=== PATIENT | female | born 1940 | race Caucasian/White ===

== ENCOUNTER 2020-05-07 09:38 | Observation (INO) | payer MEDICARE, SELFPAY ==
[2020-05-07] VITALS (9 sets, daily range): BP systolic 107–188; BP diastolic 63–86; PULSE 51–107; RESP 17–20; TEMP 36.5–36.8; O2SAT 95–97; BMI 27.4
--- NOTE | 2020-05-07 10:09 | CT_ITS ---
WS: [id number] CT HEAD TECHNIQUE: Noncontrast CT of the head obtained from the skullbase to the vertex. CLINICAL INFORMATION: AMS/weakness COMPARISON: CT head 5 22,016 DLP: 1776.[address] scans at [facility] use at least one of these dose optimization techniques: automat ed exposure control; mA and/or kV adjustment per patient size (includes targeted exams where dose is matched to clinical indication); or iterative reconstruction. FINDINGS: No evidence of intracranial hemorrhage or mass effect. Ventricular system and basal cisterns are mathis nt. Moderate small vessel changes with moderate parenchymal volume loss. No extra-axial fluid collect ions. No evidence of mass or mass effect. Normal linder-white differentiation. Fluid within the sphenoid sinus. Mastoid air cells well aerated.Normal visualized soft tissues. CT/CT head wo con* [id number] IMPRESSION: 1. No evidence of intracranial hemorrhage or mass effect. 2. Moderate small vessel changes. Moderate parenchymal volume loss. This is pr ogressed since 2016. 3. Sphenoid sinusitis. 4. No acute intracranial findings.
--- NOTE | 2020-05-07 10:09 | XR_ITS ---
WS: [id number] Portable AP upright chest, 05/07/2020 Clinical Data: AMS Comparison: None. Findings: No nodules, masses or effusions are seen. The heart is normal. The pulmonary vascularity is not increased. No pneumonia or pneumothorax is seen. The aortic arch and descending aorta show tortu osity. There are clips in the right upper quadrant from a cholecystectomy. XR/XR chest 1V portable [id number] Impression: Atherosclerosis.
--- NOTE | 2020-05-07 10:09 | ECG_ITS ---
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 Measurements Intervals [place] Rate: 51 P: 250 DE: 126 QRS: 12 QRSD: 88 T: 35 QT: 444 QTc: 412 Interpretive Statements SINUS BRADYCARDIA WITH FIRST DEGREE AV BLOCK Compared to ECG 07/20/2015 19:48:29 Sinus rhythm no longer present First degree AV block no longer present Electronically Signed On 05-07-2020 18:52:08 ELECTRO MECHANICAL SOLAR TECHNICIAN by Magy Aldana M.D. [email or web address]/store/[id number] f
--- NOTE | 2020-05-07 10:10 | W.ED.NEUROSD ---
HPI - Neuro Symptoms/Deficit General: Chief Complaint: Weakness Stated Complaint: GENERAL WEAKNESS Time Seen by Provider: 05/07/20 09:49 Source: family (daughter) Limitations: altered mental status (pt with baseline dementia/Alzheimer's) History of Present Illness: HPI Narrative: Patient is an 80-year-old female with a history of Alzheimer's dementia here with her daughter for complaints of altered mental status. Patient received second COVID dose on Tuesday. Daughter tells me yesterday morning when patient woke up she seemed very weak and had trouble getting out of bed. Daughter states she was very disoriented. She was able to stand up but seemed to shuffle her feet with ambulation. Daughter states throughout the day patient continued to act abnormally. She often would slouch over to the left. She picked/poked at her food and didn't eat much. Daughter states she often said things that didn't make sense. They did not noticed any slurred speech or facial drooping. Daughter states symptoms did not improve into today-they were told that she might have a UTI so they brought patient to the ED. Onset (ago): day(s) (yesterday) Timing confirmed by: family member Treatments Prior to Arrival: none Review of Systems General: Reports: ROS unobtainable due to mental status Physical Exam Const: COMMON NORMALS: no acute distress, average body habitus, healthy appearing, alert and well nourished GENERAL APPEARANCE: cooperative ORIENTATION/CONSCIOUSNESS: Yes awake OTHER: patient can tell me her first name; she doesn't know where she is or her -daughter states she normally wouldn't know these; she tells me she recognizes the individual in the room and knows her name but doesn't know how they are related (daughter); patient does not follow commands very well making NIHSS testing difficult; she can uncross her legs when asked; she won't raise legs off the table when asked; she won't raise arms up when asked; she will squeeze my fingers and strength is equal bilaterally; she will smile, puff her cheeks, raise eyebrows and squint eyes and I do not visualize any facial asymmetry; she did not stick out her tongue and move side to side; she won't shrug shoulders; she won't repeat sentences; she often laughs inappropriately when I ask her questions ANN: COMMON NORMALS: normocephalic and atraumatic HEAD & SCALP: normocephalic and atraumatic Eye: COMMON NORMALS: Equal, round and reactive pupils present and EOMs intact bilaterally GENERAL EYE: appearance normal, both eyes and all related structures PUPIL: Yes Equal, round and reactive pupils present Resp: COMMON NORMALS: normal respiratory effort and clear to auscultation bilaterally AUSCULTATION: clear to auscultation bilaterally Cardio: COMMON NORMALS: regular rate and regular rhythm RATE: regular rate RHYTHM: regular rhythm Extremity: COMMON NORMALS: normal to inspection, capillary refill normal, no calf tenderness and no pedal edema GENERAL: Yes normal exam except as noted Neuro: GERRI COMA SCALE: document GCS findings Gerri coma scale eye opening: Spontaneous [place] coma scale verbal response: Orientated (she can tell me name and seems to recognzie daughter in room) [place] coma scale motor response: Obey commands (patient obeys some commands; ignores others) Gerri coma scale total score: 15 SENSORIUM/ORIENTATION: Yes alert SPEECH: expressive aphasia (pt laughs inappropriately with questioning) and Other neuro speech findings (when patient does speak I do not note any slurring) GAIT: Yes Unable to assess gait MOTOR EXAM: Other motor observations present (pt does not obey commands enough to test this; 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 Wilkinson has seen and evaluated patient as well. Patient here with AMS. She has no signs of infection/sepsis. She has no focal neurological deficits. She is a fall risk and family cannot care for her in this state. Dr. Wilkinson has spoken to hospitalist for admission. Lab Data: Labs: Lab Results 05/07/20 05/07/20 05/07/20 Range/Units 10:45 10:45 10:45 WBC 6.0 (4.0-10.0) 10^3/ uL RBC 3.92 L (4.1-5.3) 10^6/u L Hgb 12.8 (11.5-15.3) g/dL Hct 39.6 (37.0-47.0) % MCV 101.0 H (81-99) fL MCH 32.7 (28.0-34.0) pg MCHC 32.3 (30.0-36.0) g/dL RDW 13.2 (12.1-15.1) % Plt Count 181 (130-400) 10^3/c mm MPV 10.2 (7.4-10.4) fL Neut % (Auto) 80.2 % Lymph % (Auto) 13.0 % [place] % (Auto) 5.7 % Eos % (Auto) 0.5 % Baso % (Auto) 0.3 % Neut # (Auto) 4.81 (1.8-7.7) 10^3/u L Lymph # (Auto) 0.8 (0.8-4.8) 10^3/u L [place] # (Auto) 0.3 (0.2-0.9) 10^3/u L Eos # (Auto) 0.0 (0.0-0.8) 10^3/u L Baso # (Auto) 0.0 (0.0-0.1) 10^3/u L Nucleated RBC % (a uto) 0 % Nucleated RBCs # 0.0 /100WBC Sodium 136 (136-145) mmol/L Potassium 4.5 (3.5-5.1) mmol/L Chloride 98 (98-107) mmol/L Carbon Dioxide 27 (22-29) mmol/L Anion Gap 15.5 (5-19) BUN 14 (8-23) mg/dL Creatinine 0.7 (0.5-0.9) mg/dL GFR Calculation Not Reportable Glucose 108 (65-115) mg/dL Calculated Osmolal ity 283 L (285-295) mOsm/k g Lactic Acid 1.1 (0.5-2.2) mmol/L Calcium 9.1 (8.5-10.5) mg/dL Magnesium 2.3 (1.7-2.3) mg/dL Total Bilirubin 0.5 (0.15-1.2) mg/dL AST 27 (0-32) U/L ALT 19 (0-33) U/L Alkaline Phosphata se 74 (35-105) IU/L Creatine Kinase (26-192) U/L Troponin T Baselin e (0-10) ng/L Total Protein 6.9 (6.6-8.7) g/dL Albumin 4.2 (3.5-5.2) g/dL Globulin 2.7 (1.3-4.6) g/dL TSH (0.27-4.20) uIU/ mL Urine Color (Yellow) Urine Appearance (CLEAR) Urine pH (5-7) Ur Specific Gravit y (1.005-1.030) Urine Protein (Negative) Urine Glucose (UA) (Normal) Urine Ketones (Negative) Urine Blood (Negative) Urine Nitrate (Negative) Urine Bilirubin (Negative) Urine Urobilinogen (Negative) mg/dL Ur Leukocyte Kia ase (Negative) Urine Opiates Scre en (Negative) ng/mL Ur Barbiturates Sc reen (Negative) ng/mL Ur Phencyclidine S crn (Negative) ng/mL Ur Amphetamines Sc reen (Negative) ng/mL U Benzodiazepines Scrn (Negative) ng/mL Urine Cocaine Scre en (Negative) ng/mL U Marijuana (THC) Screen (Negative) ng/mL 05/07/20 05/07/20 05/07/20 Range/Units 10:45 10:45 10:45 WBC (4.0-10.0) 10^3/ uL RBC (4.1-5.3) 10^6/u L Hgb (11.5-15.3) g/dL Hct (37.0-47.0) % MCV (81-99) fL MCH (28.0-34.0) pg MCHC (30.0-36.0) g/dL RDW (12.1-15.1) % Plt Count (130-400) 10^3/c mm MPV (7.4-10.4) fL Neut % (Auto) % Lymph % (Auto) % [place] % (Auto) % Eos % (Auto) % Baso % (Auto) % Neut # (Auto) (1.8-7.7) 10^3/u L Lymph # (Auto) (0.8-4.8) 10^3/u L [place] # (Auto) (0.2-0.9) 10^3/u L Eos # (Auto) (0.0-0.8) 10^3/u L Baso # (Auto) (0.0-0.1) 10^3/u L Nucleated RBC % (a uto) % Nucleated RBCs # /100WBC Sodium (136-145) mmol/L Potassium (3.5-5.1) mmol/L Chloride (98-107) mmol/L Carbon Dioxide (22-29) mmol/L Anion Gap (5-19) BUN (8-23) mg/dL Creatinine (0.5-0.9) mg/dL GFR Calculation Glucose (65-115) mg/dL Calculated Osmolal ity (285-295) mOsm/k g Lactic Acid (0.5-2.2) mmol/L Calcium (8.5-10.5) mg/dL Magnesium (1.7-2.3) mg/dL Total Bilirubin (0.15-1.2) mg/dL AST (0-32) U/L ALT (0-33) U/L Alkaline Phosphata se (35-105) IU/L Creatine Kinase 136 (26-192) U/L Troponin T Baselin e 15 H (0-10) ng/L Total Protein (6.6-8.7) g/dL Albumin (3.5-5.2) g/dL Globulin (1.3-4.6) g/dL TSH 2.03 (0.27-4.20) uIU/ mL Urine Color (Yellow) Urine Appearance (CLEAR) Urine pH (5-7) Ur Specific Gravit y (1.005-1.030) Urine Protein (Negative) Urine Glucose (UA) (Normal) Urine Ketones (Negative) Urine Blood (Negative) Urine Nitrate (Negative) Urine Bilirubin (Negative) Urine Urobilinogen (Negative) mg/dL Ur Leukocyte Kia ase (Negative) Urine Opiates Scre en (Negative) ng/mL Ur Barbiturates Sc reen (Negative) ng/mL Ur Phencyclidine S crn (Negative) ng/mL Ur Amphetamines Sc reen (Negative) ng/mL U Benzodiazepines Scrn (Negative) ng/mL Urine Cocaine Scre en (Negative) ng/mL U Marijuana (THC) Screen (Negative) ng/mL 05/07/20 05/07/20 Range/Units 10:56 10:56 WBC (4.0-10.0) 10^3/ uL RBC (4.1-5.3) 10^6/u L Hgb (11.5-15.3) g/dL Hct (37.0-47.0) % MCV (81-99) fL MCH (28.0-34.0) pg MCHC (30.0-36.0) g/dL RDW (12.1-15.1) % Plt Count (130-400) 10^3/c mm MPV (7.4-10.4) fL Neut % (Auto) % Lymph % (Auto) % [place] % (Auto) % Eos % (Auto) % Baso % (Auto) % Neut # (Auto) (1.8-7.7) 10^3/u L Lymph # (Auto) (0.8-4.8) 10^3/u L [place] # (Auto) (0.2-0.9) 10^3/u L Eos # (Auto) (0.0-0.8) 10^3/u L Baso # (Auto) (0.0-0.1) 10^3/u L Nucleated RBC % (a uto) % Nucleated RBCs # /100WBC Sodium (136-145) mmol/L Potassium (3.5-5.1) mmol/L Chloride (98-107) mmol/L Carbon Dioxide (22-29) mmol/L Anion Gap (5-19) BUN (8-23) mg/dL Creatinine (0.5-0.9) mg/dL GFR Calculation Glucose (65-115) mg/dL Calculated Osmolal ity (285-295) mOsm/k g Lactic Acid (0.5-2.2) mmol/L Calcium (8.5-10.5) mg/dL Magnesium (1.7-2.3) mg/dL Total Bilirubin (0.15-1.2) mg/dL AST (0-32) U/L ALT (0-33) U/L Alkaline Phosphata se (35-105) IU/L Creatine Kinase (26-192) U/L Troponin T Baselin e (0-10) ng/L Total Protein (6.6-8.7) g/dL Albumin (3.5-5.2) g/dL Globulin (1.3-4.6) g/dL TSH (0.27-4.20) uIU/ mL Urine Color Yellow (Yellow) Urine Appearance Clear (CLEAR) Urine pH 7 (5-7) Ur Specific Gravit y 1.005 (1.005-1.030) Urine Protein Neg (Negative) Urine Glucose (UA) Norm (Normal) Urine Ketones Negative (Negative) Urine Blood Neg (Negative) Urine Nitrate Negative (Negative) Urine Bilirubin Neg (Negative) Urine Urobilinogen Norm (Negative) mg/dL Ur Leukocyte Kia ase Negative (Negative) Urine Opiates Scre en Negative (Negative) ng/mL Ur Barbiturates Sc reen Negative (Negative) ng/mL Ur Phencyclidine S crn Negative (Negative) ng/mL Ur Amphetamines Sc reen Negative (Negative) ng/mL U Benzodiazepines Scrn Negative (Negative) ng/mL Urine Cocaine Scre en Negative (Negative) ng/mL U Marijuana (THC) Screen Negative (Negative) ng/mL Imaging Data^: CT Head: Radiologist's impression: [place] [address] CT Scan Report Signed Patient: Neelam Walker #: [id number] : 1940Acct#:[id number] Age/Sex: 80 / FADM Date: 05/07/20 Loc: ERRoom/Bed: Attending Dr: Ordering Provider/Ordering MD: Chika Cole Date of Service: 05/07/20 Procedure(s): CT head wo con* [id number] Accession Number(s): [id number] Report Number: [id number] WS: [id number] CT HEAD TECHNIQUE: Noncontrast CT of the head obtained from the skullbase to the vertex. CLINICAL INFORMATION: AMS/weakness COMPARISON: CT head 5 22,016 DLP: 1776.[address] scans at [facility] use at least one of these dose optimization techniques: automated exposure control; mA and/or kV adjustment per patient size (includes targeted exams where dose is matched to clinical indication); or iterative reconstruction. FINDINGS: No evidence of intracranial hemorrhage or mass effect. Ventricular system and basal cisterns are patent. Moderate small vessel changes with moderate parenchymal volume loss. No extra-axial fluid collections. No evidence of mass or mass effect. Normal linder-white differentiation. Fluid within the sphenoid sinus. Mastoid air cells well aerated.Normal visualized soft tissues. CT/CT head wo con* [id number] IMPRESSION: 1. No evidence of intracranial hemorrhage or mass effect. 2. Moderate small vessel changes. Moderate parenchymal volume loss. This is progressed since 2016. 3. Sphenoid sinusitis. 4. No acute intracranial findings. Dictated By:Bentley Landaverde MD Signed By:Bentley Landaverde MDSigned Date/Time:05/07/20 1048 DD/ 104 CXR: Radiologist's impression: [address] [address] XRay Report Signed Patient: Neelam Walker Unit #: [id number] : 1940 Age/Sex: 80 / F ADM Date: 05/07/20 Loc: ER Room/Bed: Attending Dr: Ordering Provider/Ordering MD: Chika Cole Date of Service: 05/07/20 Procedure(s): XR chest 1V portable [id number] Accession Number(s): [id number] Report Number: [id number] WS: [id number] Portable AP upright chest, 05/07/2020 Clinical Data: AMS Comparison: None. Findings: No nodules, masses or effusions are seen. The heart is normal. The pulmonary vascularity is not increased. No pneumonia or pneumothorax is seen. The aortic arch and descending aorta show tortuosity. There are clips in the right upper quadrant from a cholecystectomy. XR/XR chest 1V portable [id number] Impression: Atherosclerosis. Dictated By: Kait Puente MD Signed By: Kait Puente MD Signed Date/Time: 05/07/20 1042 DD/ 104 Discharge Plan Discharge Patient Disposition: Admitted As Inpatient Admit Provider: Bonnie Comer Clinical Impression: Alzheimer's dementia, Generalized weakness, Declining functional status, Unable to ambulate, Adverse effect of other viral vaccines, initial encounter Condition: Stable Coding Level of Care Code ED Dump Motorman for Teressa Aldrich Exam Comprehensive
[2020-05-07 10:58] LABS: Basophils % 0.3 %; Eosinophils % 0.5 %; Hematocrit 39.6 % (37.0-47.0); Hemoglobin 12.8 g/dL (11.5-15.3); Lymphocytes # 0.8 10^3/uL (0.8-4.8); Mean Corpuscular HGB Conc 32.3 g/dL (30.0-36.0); Mean Corpuscular Hemoglobin 32.7 pg (28.0-34.0); Mean Platelet Volume 10.2 fL (7.4-10.4); Monocytes # 0.3 10^3/uL (0.2-0.9); Monocytes % 5.7 %; Neutrophils # 4.81 10^3/uL (1.8-7.7); Neutrophils % 80.2 %; Nucleated Red Blood Cells % 0 %; Platelet Count 181 10^3/cmm (130-400); Red Blood Count 3.92 10^6/uL (4.1-5.3); Red Cell Distribution Width 13.2 % (12.1-15.1)
[2020-05-07 11:18] LABS: Add Urine Microscopic? NO
[2020-05-07 11:30] LABS: Bilirubin Urine Neg (Negative); Blood Urine Neg (Negative); Glucose Urine UA Norm (Normal); Ketones Urine Negative (Negative); Leukocyte Esterase Urine Negative (Negative); Nitrate Urine Negative (Negative); Protein Urine Neg (Negative); Specific Gravity, Urine 1.005 (1.005-1.030); Urine Appearance Clear (CLEAR); Urine Color Yellow (Yellow); Urobilinogen Urine Norm (Negative); pH Urine 7 (5-7)
[2020-05-07 11:32] LABS: Amphetamines Screen Urine Negative (Negative); Barbiturates Screen Urine Negative (Negative); Benzodiazepines Screen Urine Negative (Negative); Cocaine Screen Urine Negative (Negative); Opiate Screen Urine Negative (Negative); PCP Screen Urine Negative (Negative); THC Screen Urine Negative (Negative)
[2020-05-07 11:41] LABS: Lactic Sepsis W/Reflex 1.1 mmol/L (0.5-2.2)
[2020-05-07 11:48] LABS: Alanine Aminotransferase 19 U/L (0-33); Albumin Level 4.2 g/dL (3.5-5.2); Alkaline Phosphatase 74 IU/L (35-105); Aspartate Amino Transferase 27 U/L (0-32); Blood Urea Nitrogen 14 mg/dL (8-23); Calcium 9.1 mg/dL (8.5-10.5); Carbon Dioxide 27 mmol/L (22-29); Chloride 98 mmol/L (98-107); Creatinine Clr Calc Pharmacy 50.7128; Globulin 2.7 g/dL (1.3-4.6); Glucose 108 mg/dL (65-115); Magnesium 2.3 mg/dL (1.7-2.3); Osmolality Calculated 283 mOsm/kg (285-295); Sodium 136 mmol/L (136-145); Total Bilirubin 0.5 mg/dL (0.15-1.2); Total Protein 6.9 g/dL (6.6-8.7)
[2020-05-07 11:51] LABS: Anion Gap 15.5 (5-19); Potassium 4.5 mmol/L (3.5-5.1)
[2020-05-07 11:53] LABS: Troponin(5th) Baseline 15 ng/L (0-10)
[2020-05-07] MEDS: sodium chloride 0.9% 500 ML 999 ML IV (12:37)
[2020-05-07] MEDS: ketorolac 30 mg/mL INJ 15 MG IVP (12:38)
[2020-05-07 12:52] LABS: Thyroid Stimulating Hormone 2.03 uIU/mL (0.27-4.20)
[2020-05-07 13:18] LABS: Creatine Phosphokinase 136 U/L (26-192)
--- NOTE | 2020-05-07 16:44 | PC.NURSE ---
PATIENT LIVES WITH SON AND T[facility]PIZ[facility]. ALSO HAS A CAREGIVER IN HOME. POWER OF DOPE WEIGH OPERATOR. PATIENT CONFUSED AT BASELINE ACCORDING TO SON.
--- NOTE | 2020-05-07 18:14 | PM.HP ---
Providers/Chief Complaint Admitting Physician: Bonnie Comer MD Chief Complaint: GENERAL WEAKNESS History of Present Illness Neelam Walker is a 80 year old female with past medical history of Alzheimer dementia with progressive cognitive decline since August 2019 who presents to the hospital today, brought in by family for worsening mental status and baseline over the last 2 days. Per patient's son who is currently at bedside, he states that patient received her second dose of COVID-19 vaccination 2 days ago, few hours afterwards she went to sleep and then was difficult to be awakened on Tuesday morning. She had a T-max of 99.9 Fahrenheit over the past 2 days. She did complain of soreness in her arm and some myalgias. However their main concern is that their mother appears to be more lethargic than usual. At baseline she is able to correctly state her name, age, independently is able to self feed and ambulates with a walker with cueing. She can also have short conversations with appropriate context. Over the last 2 days, she has been sleeping more hours than usual, difficult to awaken in the mornings, is refusing to currently eat or drink, does not self feed and is not ambulating. She has not indicated that she has any urinary discomfort. She is incontinent and wears pull-ups. No diarrhea noted by family. No cough. Diagnostics in the ER showed relatively normal labs including CBC LFT and renal function. Lactate is not elevated. Troponin baseline at 15. No EKG changes. CT head negative for CVA. Moderate small vessel changes and moderate parenchymal volume loss progress since 2016. Otherwise no acute findings. TSH is within range. Review of Systems General: Reports: ROS unobtainable due to mental status Medications/Allergies Home Medications Medication Instructions Recorded Confirmed Last Taken Type acetaminophen 1,000 mg PO TID PRN 05/07/20 05/07/20 Unknown History bisoprolol-hydrochlorothiazide 1 tab PO DAILY@05/07/20 05/07/20 05/06/20 History buspirone 5 mg PO BID@05/07/20 05/07/20 05/06/20 History calcium 600 mg PO BID@05/07/20 05/07/20 05/06/20 History clopidogrel 75 mg PO DAILY@05/07/20 05/07/20 05/06/20 History fluoxetine 20 mg PO DAILY@05/07/20 05/07/20 05/06/20 History galantamine 24 mg PO DAILY@05/07/20 05/07/20 05/06/20 History levothyroxine [Synthroid] 125 mcg PO DAILY@05/07/20 05/07/20 05/06/20 History memantine 10 mg PO BID@,05/07/20 05/07/20 05/06/20 History multivitamin 1 tab PO DAILY@05/07/20 05/07/20 05/06/20 History tramadol 50 - 100 mg PO TID PRN 05/07/20 05/07/20 Unknown History Allergies Allergy/AdvReac Type Severity Reaction Status Date / Time Penicillins Allergy Severe ALGY-Swell Verified 05/07/20 10:49 Lip/Tongue/Throat RADHA Inhibitors Allergy Intermediate ADR-Cough Verified 05/07/20 10:49 irbesartan Allergy Intermediate ADR-Fatigue Verified 05/07/20 10:49 d banana Allergy Unknown Unknown Verified 05/07/20 10:50 PFSH Acute PFSH: Medical History (Updated 05/07/20 @ 18:19 by Bonnie Comer MD) Alzheimer's dementia Hypertension Hypothyroidism TIA (transient ischemic attack) Family History (Updated 05/07/20 @ 18:19 by Bonnie Comer MD) Other CAD (coronary artery disease) Social History (Updated 05/07/20 @ 18:19 by Bonnie Comer MD) Smoking and tobacco status: never smoked Alcohol intake: unknown Substance/Drug Use: never Caregiver/support person: Yes Lives independently: No Household members: children Housing: House Vitals/I&O/Wt Last Vital Signs Temp 98.0 F 05/07/20 16:42 Pulse 80 05/07/20 16:42 Resp 18 05/07/20 16:42 BP 188/84 05/07/20 16:42 Pulse Ox 97 05/07/20 16:42 Weight last 48 hrs Weight 68.039 kg Physical Exam Narrative: EXAM NARRATIVE: General: No acute distress, AO x1, currently she is unable to tell me her name, however does identify son by the correct name at bedside, speaks few short sentences such as there is food on your shirt , chuckles nervously in response to most questions, appears anxious, follows my commands to move extremities for power testing after multiple cues HEENT: PERRLA, pupils bilaterally equal and reactive, pallors not present Chest: Normal vesicular breath sounds, no added sounds, equal good air entry bilaterally CVS: S1-S2 regular, no murmurs, no tachycardia, no gallops, no rubs Abdomen: Soft, nontender, no organomegaly, bowel sounds present Neuro: No focal deficits, no facial deformity, AO x1, power 5/5 in all limbs Extremities: Healthy surgical dressing present on the right hip, mild tenderness, soft no erythema. Data : 05/07/20 10:45 05/07/20 10:45 A&P Assessment and plan (1) Alzheimer's dementia: Progressive Alzheimer's dementia at least since August 2019 since when patient has been living with her family. She has in-home services and a home health aide that stays with her for most part of the day. At baseline patient requires frequent reorientation, though is able to correctly state her name, recognize relatives, self feed, ambulate with walker with assistance and indicate when she needs to have a bowel movement. Over the past 2 days family has noted that patient has deteriorated more significantly, currently sentences do not make sense, refusing to eat, refusing to ambulate. No focal neuro deficits at this time to suggest CVA. CT head is negative for any acute events. Patient had T-max of 99.9 after vaccination and was complaining of myalgias. Possible that low-grade fever and generalized feeling of unwell may have precipitated this current cognitive decline, however do expect it to improve over the next 24 to 48 hours. Patient appears mildly dehydrated, likely as a result of poor p.o. intake over the past 2 days, will start her on D5 normal saline at 75 cc/h and monitor for response. Mechanical soft diet with supplementation Ensure added. No current focal signs or symptoms of infection. He UA is clear, chest x-ray is without any infiltrates, abdominal exam is benign, no current abdominal complaints. Status: Acute Qualifiers: Alzheimer's disease onset: unspecified onset Dementia behavioral disturbance: with behavioral disturbance Qualified Code(s): G30.9 - Alzheimer's disease, unspecified; F02.81 - Dementia in other diseases classified elsewhere with behavioral disturbance (2) Generalized weakness: Status: Acute (3) Declining functional status: Status: Acute (4) Hypertension: Patient has not taken antihypertensives over the past 2 days, which could explain systolic blood pressure up to 188 right now. Amlodipine 5 mg oral to be given now. Resume bisoprolol hydrochlorothiazide tomorrow. If remains elevated or patient unable to swallow p.o. pills will switch to IV. Status: Acute Attestations Medical Necessity Statement*: Observation admission, IV hydration, blood pressure control. Coding Level of Care Code Acute Geographic Information Systems Director for Teressa Aldrich Diagnoses Alzheimer's dementia G30.9; F02.81 Alzheimer's disease onset: unspecified onset Dementia behavioral disturbance: with behavioral disturbance Generalized weakness R53.1 Declining functional status R53.81 Hypertension I10
[2020-05-07] MEDS: amlodipine 5 mg Tablet PO (18:34)
[2020-05-07] MEDS: dextrose 5%-sod chloride 0.9% 1,000 ML 75 ML IV (18:35)
--- NOTE | 2020-05-07 18:37 | PC.NURSE ---
SHIFT SUMMARY PATIENT HAS BEEN RESTING IN BED SINCE ARRIVAL FROM THE ER. PATIENT IS ALERT TO SELF ONLY. SON AT BEDSIDE TO HELP WITH ADMISSION. BLOOD PRESSURE ELEVATED. THIS NURSE ADMINISTERED AMLODIPINE. THE ONLY VISITORS ALLOWED TO SEE PATIENT IS DARON BILL.
[2020-05-07] MEDS: memantine 5 mg tablet 10 MG PO (20:29)
[2020-05-07] MEDS: BuSPIRONE 5 mg Tablet PO (20:29)
[2020-05-07] MEDS: fluoxetine 20 mg Capsule PO (20:29)
[2020-05-08 04:44] VITALS: BP 170/86; PULSE 110; RESP 17; TEMP 36.7; O2SAT 97
[2020-05-08 08:00] VITALS: BP 162/68; PULSE 60; RESP 17; TEMP 36.8; O2SAT 97
[2020-05-08] MEDS: levothyroxine 125 mcg Tablet PO (08:28)
[2020-05-08] MEDS: clopidogrel 75 mg Tablet PO (08:28)
[2020-05-08] MEDS: famotidine 20 mg Tablet PO ×2 (08:28→18:50)
[2020-05-08] MEDS: BuSPIRONE 5 mg Tablet PO ×2 (08:28→21:37)
[2020-05-08] MEDS: memantine 5 mg tablet 10 MG PO ×2 (08:28→21:37)
--- NOTE | 2020-05-08 11:03 | PC.CHAP ---
Pastoral Care Encounter/Spiritual Assessment Type of Contact [] Declined magnetic resonance technologist visit [] Patient/Family/Request visit [] Outpatient visit [] Follow-up visit [] Physician referral [] Code/Alert [x] Routine visit [] Staff referral [] Actively dying [] Patient sleeping [] Family support [] [] Out of room [] Palliative care [] [x] Receiving care in room [] Pre-surgical visit [] Trauma [] Long length of stay [] ICU visit [x] Other: dementa Relational/Emotional Strength [] Patient feels connected with others/family/visitors/staff [x] Distress [] Loneliness/isolation [] Abandonment Spirituality of Patient [x] Person of Erika [] Attends Mormon of their Reika [x] Believes in Prayer [] Reads Bible or Bahai materials [] There are Spiritual issues to be addressed Stock Analyst Interventions [x] Prayer [x] Active listening [x] Non-anxious presence [x] Spiritual/emotional support [] Crisis/trauma care [x] Spiritual counseling [] Bereavement support [] Provided bereavement packet [] Provided Bible/devotional materials [] Provided toy/stuffed animal, coloring book to patient or family member [] Provided Communion [] Anointing/[place] [] Salvation [x] Completed spiritual assessment [] Other: Impact on Illness or Injury [] Angry [x] Fearful [] Anxious [] Often cries [] Exhaustion [] Unable to work [] Unable to attend rastafarian [] Unable to walk/stand [] Unable to read [] Unable to drive [] Unable to eat/drink [] Unable to sleep [] Unable to be with family [] Patient intubated [] Other: Summary a senior has some dementa, has a good attitude Time spent with patient 10 mins
--- NOTE | 2020-05-08 11:22 | P.PN_ITS ---
Subjective Subjective: Interval history: No acute events, mental status grossly unchanged, blood pressure ranging 1 50-1 60 systolic, afebrile, Medications: Reviewed: Yes Vitals/I&O/Wt Last Vital Signs Temp 98.3 F 05/08/20 08:00 Pulse 60 05/08/20 08:00 Resp 17 05/08/20 08:00 BP 162/68 05/08/20 08:00 Pulse Ox 97 05/08/20 08:00 05/07/20 05/08/20 05/08/20 22:59 06:59 14:59 Intake Total 75 / 75 200 / 275 Balance 75 / 75 200 / 275 Weight last 48 hrs Weight 68.039 kg Physical Exam Narrative: EXAM NARRATIVE: General: No acute distress, AO x1, currently she is unable to tell me her name, however does identify son by the correct name at bedside, speaks few short sentences such as there is food on your shirt , chuckles nervously in response to most questions, appears anxious, follows my commands to move extremities for power testing after multiple cues HEENT: PERRLA, pupils bilaterally equal and reactive, pallors not present Chest: Normal vesicular breath sounds, no added sounds, equal good air entry bilaterally CVS: S1-S2 regular, no murmurs, no tachycardia, no gallops, no rubs Abdomen: Soft, nontender, no organomegaly, bowel sounds present Neuro: No focal deficits, no facial deformity, AO x1, power 5/5 in all limbs Data : 05/07/20 10:45 05/07/20 10:45 A&P Assessment and plan (1) Alzheimer's dementia: Progressive Alzheimer's dementia at least since August 2019 since when patient has been living with her family. She has in-home services and a home health aide that stays with her for most part of the day. At baseline patient requires frequent reorientation, though is able to correctly state her name, recognize relatives, self feed, ambulate with walker with assistance and indicate when she needs to have a bowel movement. Over the past 2 days family has noted that patient has deteriorated more significantly, currently sentences do not make sense, refusing to eat, refusing to ambulate. No focal neuro deficits at this time to suggest CVA. CT head is negative for any acute events. Patient had T-max of 99.9 after vaccination and was complaining of myalgias. Possible that low-grade fever and generalized feeling of unwell may have precipitated this current cognitive decline, however do expect it to improve over the next 24 to 48 hours if that is the case Patient was mildly dehydrated upon admission, had supplemental IV fluids, however this did not make any significant difference in her mentation No current focal signs or symptoms of infection. He UA is clear, chest x-ray is without any infiltrates, abdominal exam is benign, no current abdominal complaints. Could not participate with PT effectively today as she did not follow most commands. Overall it appears to be a more gradual cognitive decline up to this point, I do not believe this is all related to acute encephalopathy or delirium. Family is requesting transition to a assisted facility as they will be u nable to take care of patient in her current state. Status: Acute Qualifiers: Alzheimer's disease onset: unspecified onset Dementia behavioral d isturbance: with behavioral disturbance Qualified Code(s): G30.9 - Alzheimer's disease, unspecified; F02.81 - Dementia in other diseases classified elsewhere with behavioral disturbance (2) Generalized weakness: Status: Acute (3) Declining functional status: Status: Acute (4) Hypertension: Systolic blood pressure continuing to be 1 50-1 60, add amlodipine 5 mg p.o. daily Status: Acute Qualifiers: Hypertension type: essential hypertension Qualified Code(s): I10 - Essential (primary) hypertension Additional A&P Information Dispo discharge to SNF as family unable to care for patient at home Start DVT prophylaxis on Lovenox Attestations Medical Necessity Statement*: Continued observation status, awaiting transition to SNF Coding Level of Care Code Acute Food And Beverage Assistant Manager for Te[facility]a Aldrich Diagnoses Alzheimer's dementia G30.9; F02.81 Alzheimer's disease onset: unspecified onset Dementia behavioral disturbance: with behavioral disturbance Generalized weakness R53.1 Declining functional status R53.81 Hypertension I10 Hypertension type: essential hypertension
[2020-05-08 12:00] VITALS: BP 150/84; PULSE 71; RESP 18; TEMP 36.4; O2SAT 97
[2020-05-08] MEDS: dextrose 5%-sod chloride 0.9% 1,000 ML 75 ML IV (12:18)
[2020-05-08 16:00] VITALS: PULSE 74; RESP 22; TEMP 37.2; O2SAT 95
[2020-05-08] MEDS: OLANZapine 5 mg ODT 2.5 MG PO (18:50)
[2020-05-08 20:00] VITALS: BP 124/65; PULSE 77; RESP 20; TEMP 36.9; O2SAT 95
[2020-05-08] MEDS: enoxaparin 30 mg/0.3 mL Syringe SUBCUT (21:36)
[2020-05-08] MEDS: fluoxetine 20 mg Capsule PO (21:36)
[2020-05-09] VITALS: BP 157/72; PULSE 78; RESP 18; TEMP 37.3; O2SAT 96
[2020-05-09 04:00] VITALS: BP 168/71; PULSE 61; RESP 18; TEMP 36.6; O2SAT 96
[2020-05-09] MEDS: dextrose 5%-sod chloride 0.9% 1,000 ML 75 ML IV (06:31)
[2020-05-09] MEDS: enoxaparin 30 mg/0.3 mL Syringe SUBCUT ×2 (06:32→18:08)
[2020-05-09] MEDS: memantine 5 mg tablet 10 MG PO ×2 (07:37→20:48)
[2020-05-09] MEDS: levothyroxine 125 mcg Tablet PO (07:38)
[2020-05-09] MEDS: BuSPIRONE 5 mg Tablet PO ×2 (07:38→20:49)
[2020-05-09] MEDS: clopidogrel 75 mg Tablet PO (07:38)
[2020-05-09] MEDS: amlodipine 5 mg Tablet PO (07:38)
[2020-05-09] MEDS: famotidine 20 mg Tablet PO ×2 (07:38→18:08)
[2020-05-09 08:00] VITALS: BP 179/82; PULSE 62; RESP 17; TEMP 36.9; O2SAT 93
[2020-05-09 12:00] VITALS: PULSE 81; RESP 17; TEMP 36.7; O2SAT 94
--- NOTE | 2020-05-09 12:59 | PC.PT ---
Attempted reassessment of patient at this time, patient unable to follow any simple directions, even with tactile cueing at this time, patient continues to mumble nonsensically; encouraged sitting bedside ?5 attempts as well; patient unable to participate meaningfully with physical therapy, no further attempts to be made, until improvements with these abilities. Patient remains unable to participate with any conversation at this time.
--- NOTE | 2020-05-09 14:30 | PM.PN ---
Subjective Subjective: Interval history: no acute overnight events, patient was able to complete breakfast this morning when fed. Remains confused and disoriented, SBP still ranging 150-160 Medications: Reviewed: Yes Vitals/I&O/Wt Last Vital Signs Temp 98.4 F 05/10/20 04:00 Pulse 74 05/10/20 04:00 Resp 24 H 05/10/20 04:00 BP 184/91 05/10/20 04:00 Pulse Ox 97 05/10/20 04:00 05/09/20 05/09/20 05/10/20 14:59 22:59 06:59 Intake Total 100 / 100 1138.75 / 1238.75 Balance 100 / 100 1138.75 / 1238.75 Physical Exam Narrative: EXAM NARRATIVE: GEN: Awake, confused, speaks in short sentences that do not make sense, unchanged over previously CVS: S1S2 N RS: CTA B/L Abd: Soft, nt/nd , bs+ TRANSCRIPTION SPECIALIST: no focal neuro motor deficits Data : 05/07/20 10:45 05/07/20 10:45 A&P Assessment and plan (1) Alzheimer's dementia: Progressive Alzheimer's dementia at least since August 2019 since when patient has been living with her family. She has in-home services and a home health aide that stays with her for most part of the day. At baseline patient requires frequent reorientation, though is able to correctly state her name, recognize relatives, self feed, ambulate with walker with assistance and indicate when she needs to have a bowel movement. Over the past week family has noted that patient has deteriorated more significantly, currently sentences do not make sense, refusing to eat, refusing to ambulate. No focal neuro deficits at this time to suggest CVA. CT head is negative for any acute events. Patient had T-max of 99.9 after 2nd COVID vaccination and was complaining of myalgias. Possible that low-grade fever and generalized feeling of unwell may have precipitated this current cognitive decline, however given that this has not significantly improved even after resolution of fever and adequate hydration, believe that this is more likely related to a gradual decline rather than an acute encephalopathy. Patient was mildly dehydrated upon admission, had supplemental IV fluids, however this did not make any significant difference in her mentation. D/c IVF as patient noted to be taking adequate po intake at this time. No current focal signs or symptoms of infection. He UA is clear, chest x-ray is without any infiltrates, abdominal exam is benign, no current abdominal complaints. Could not participate with PT effectively as she did not follow most commands.. Family is requesting transition to a custodial facility as they will be unable to take care of patient in her current state. Code status changed to DNR/DNI after discussion with family and patient's last known wishes Status: Acute Qualifiers: Alzheimer's disease onset: unspecified onset Dementia behavioral disturbance: with behavioral disturbance Qualified Code(s): G30.9 - Alzheimer's disease, unspecified; F02.81 - Dementia in other diseases classified elsewhere with behavioral disturbance (2) Generalized weakness: Status: Acute (3) Declining functional status: Status: Acute (4) Hypertension: Systolic blood pressure continuing to be 1 50-1 60, increase amlodipine 10 mg p.o. daily Status: Acute Qualifiers: Hypertension type: essential hypertension Qualified Code(s): I10 - Essential (primary) hypertension Additional A&P Information Dispo discharge to SNF as family unable to care for patient at home in current state DVT prophylaxis : Lovenox Attestations Medical Necessity Statement*: Pending SNF placement Coding Level of Care Code Acute Rouge Presser for [facility] Fwd Diagnoses Alzheimer's dementia G30.9; F02.81 Alzheimer's disease onset: unspecified onset Dementia behavioral disturbance: with behavioral disturbance Generalized weakness R53.1 Declining functional status R53.81 Hypertension I10 Hypertension type: essential hypertension
[2020-05-09 16:00] VITALS: BP 152/74; PULSE 81; RESP 17; TEMP 37.1; O2SAT 95
[2020-05-09 20:00] VITALS: BP 175/85; PULSE 78; RESP 20; TEMP 36.6; O2SAT 94
[2020-05-09] MEDS: fluoxetine 20 mg Capsule PO (20:49)
[2020-05-10 00:37] VITALS: BP 164/78; PULSE 63; RESP 20; TEMP 37.2; O2SAT 95
[2020-05-10 04:00] VITALS: BP 184/91; PULSE 74; RESP 24; TEMP 36.9; O2SAT 97
[2020-05-10] MEDS: enoxaparin 30 mg/0.3 mL Syringe SUBCUT (05:36)
[2020-05-10 08:00] VITALS: BP 184/91; PULSE 74; RESP 24; TEMP 36.9; O2SAT 97
[2020-05-10] MEDS: amlodipine 10 mg Tablet PO (08:46)
[2020-05-10] MEDS: famotidine 20 mg Tablet PO ×2 (08:46→17:47)
[2020-05-10] MEDS: clopidogrel 75 mg Tablet PO (08:46)
[2020-05-10] MEDS: BuSPIRONE 5 mg Tablet PO ×2 (08:46→22:00)
[2020-05-10] MEDS: memantine 5 mg tablet 10 MG PO ×2 (08:46→22:00)
[2020-05-10] MEDS: levothyroxine 125 mcg Tablet PO (08:46)
[2020-05-10 12:00] VITALS: BP 160/73; PULSE 80; RESP 24; TEMP 36.2; O2SAT 94
[2020-05-10] MEDS: TRAMadol 50 mg Tablet PO (12:44)
[2020-05-10 15:39] VITALS: BP 144/81; PULSE 80; RESP 18; TEMP 36.7; O2SAT 98
--- NOTE | 2020-05-10 16:39 | PM.PN ---
Subjective Subjective: Interval history: No new clinical events overnight No fever or chills No nausea or vomiting Medications: Reviewed: Yes Vitals/I&O/Wt Last Vital Signs Temp 98.0 F 05/10/20 15:39 Pulse 80 05/10/20 15:39 Resp 18 05/10/20 15:39 BP 144/81 05/10/20 15:39 Pulse Ox 98 05/10/20 15:39 05/10/20 05/10/20 05/10/20 06:59 14:59 22:59 Intake Total 220 / 220 Balance 220 / 220 Physical Exam Narrative: EXAM NARRATIVE: GEN: Awake, confused, speaks in short sentences that do not make sense, unchanged over previously CVS: S1S2 N RS: CTA B/L Abd: Soft, nt/nd , bs+ INTERNATIONAL COORDINATOR: no focal neuro motor deficits Data : 05/07/20 10:45 05/07/20 10:45 A&P Assessment and plan (1) Alzheimer's dementia: - At baseline - No evidence of infectious process - Labs stable - Awaiting placement Status: Acute Qualifiers: Alzheimer's disease onset: unspecified onset Dementia behavioral disturbance: with behavioral disturbance Qualified Code(s): G30.9 - Alzheimer's disease, unspecified; F02.81 - Dementia in other diseases classified elsewhere with behavioral disturbance (2) Generalized weakness: Status: Acute (3) Declining functional status: Status: Acute (4) Hypertension: Systolic blood pressure continuing to be 1 50-1 60, increase amlodipine 10 mg p.o. daily Status: Acute Qualifiers: Hypertension type: essential hypertension Qualified Code(s): I10 - Essential (primary) hypertension Additional A&P Information Dispo - Awaiting discharge to SNF - CM/SW on board DVT prophylaxis : Lovenox Attestations Medical Necessity Statement*: Will continue current hospitalization until discharge placement can be arranged. Time Spent in Patient Care: Greater than 35 minutes (>than 50% of time spent in counselling and/or direct pt care on unit). Coding Level of Care Code Acute Maintenance Painter for Teressa Aldrich Diagnoses Alzheimer's dementia G30.9; F02.81 Alzheimer's disease onset: unspecified onset Dementia behavioral disturbance: with behavioral disturbance Generalized weakness R53.1 Declining functional status R53.81 Hypertension I10 Hypertension type: essential hypertension
[2020-05-10 20:27] VITALS: BP 133/80; PULSE 82; RESP 20; TEMP 37; O2SAT 97
[2020-05-10] MEDS: fluoxetine 20 mg Capsule PO (22:00)
[2020-05-11] VITALS (7 sets, daily range): BP systolic 150–183; BP diastolic 53–93; PULSE 65–97; RESP 17–20; TEMP 36.5–37.3; O2SAT 93–98
[2020-05-11] MEDS: enoxaparin 30 mg/0.3 mL Syringe SUBCUT (06:02)
[2020-05-11] MEDS: levothyroxine 125 mcg Tablet PO (09:33)
[2020-05-11] MEDS: amlodipine 10 mg Tablet PO (09:33)
[2020-05-11] MEDS: famotidine 20 mg Tablet PO ×2 (09:33→17:30)
[2020-05-11] MEDS: clopidogrel 75 mg Tablet PO (09:34)
[2020-05-11] MEDS: memantine 5 mg tablet 10 MG PO ×2 (09:34→20:42)
[2020-05-11] MEDS: BuSPIRONE 5 mg Tablet PO ×2 (09:34→20:42)
[2020-05-11] MEDS: TRAMadol 50 mg Tablet PO (09:37)
--- NOTE | 2020-05-11 12:45 | P.PN_ITS ---
Subjective Subjective: Interval history: No new clinical events overnight. Discovered today that bisoprolol hydrochlorothiazide from her home medication list has not been given as a product is not on formulary. Hydrochlorothiazide 12.5 mg added separately Medications: Reviewed: Yes Vitals/I&O/Wt Last Vital Signs Temp 98.6 F 05/11/20 11:55 Pulse 86 05/11/20 11:55 Resp 18 05/11/20 11:55 BP 181/56 05/11/20 11:55 Pulse Ox 96 05/11/20 11:55 05/10/20 05/11/20 05/11/20 21:59 06:59 14:59 Intake Total 360 / 360 Balance 360 / 360 Physical Exam Narrative: EXAM NARRATIVE: GEN: Awake, confused, speaks in short sentences that do not make sense, unchanged over previously CVS: S1S2 N RS: CTA B/L Abd: Soft, nt/nd , bs+ OIL BURNER TECHNICIAN: no focal neuro motor deficits Data : 05/07/20 10:45 05/07/20 10:45 A&P Assessment and plan (1) Alzheimer's dementia: Progressive Alzheimer's dementia at least since August 2019 since when patient has been living with her family. She has in-home services and a home health aide that stays with her for most part of the day. At baseline patient requires frequent reorientation, though is able to correctly state her name, recognize relatives, self feed, ambulate with walker with assistance and indicate when she needs to have a bowel movement. Over the past week family has noted that patient has deteriorated more significantly, currently sentences do not make sense, refusing to eat, refusing to ambulate. No focal neuro deficits at this time to suggest CVA. CT head is negative for any acute events. Patient had T-max of 99.9 after 2nd COVID vaccination and was complaining of myalgias. Possible that low-grade fever and generalized feeling of unwell may have precipitated this current cognitive decline, however given that this has not significantly improved even after resolution of fever and adequate hydration, believe that this is more likely related to a gradual decline rather than an acute encephalopathy. Patient was mildly dehydrated upon admission, had supplemental IV fluids, however this did not make any significant difference in her mentation. No current focal signs or symptoms of infection. He UA is clear, chest x-ray is without any infiltrates, abdominal exam is benign, no current abdominal complaints. She remains afberile and hemodynamically stable. Could not participate with PT effectively as she did not follow most commands.. Family is requesting transition to a group home facility as they will be unable to take care of patient in her current state. Code status changed to DNR/DNI after discussion with family Status: Acute Qualifiers: Alzheimer's disease onset: unspecified onset Dementia behavioral disturbance: with behavioral disturbance Qualified Code(s): G30.9 - Alzheimer's disease, unspecified; F02.81 - Dementia in other diseases classified elsewhere with behavioral disturbance (2) Generalized weakness: Status: Acute (3) Declining functional status: Status: Acute (4) Hypertension: Systolic blood pressure continuing to be 180, added HCTZ 12.5mg po daily. HR currently controlled, off bisoprolol since admission Status: Acute Qualifiers: Hypertension type: essential hypertension Qualified Code(s): I10 - Essential (primary) hypertension Additional A&P Information Dispo discharge to SNF as family unable to care for patient at home in current state DVT prophylaxis : Lovenox Attestations Medical Necessity Statement*: awaiting placement at SNF Coding Level of Care Code Acute Inspector Machine Parts for Teressa Fwd Diagnoses Alzheimer's dementia G30.9; F02.81 Alzheimer's disease onset: unspecified onset Dementia behavioral disturbance: with behavioral disturbance Generalized weakness R53.1 Declining functional status R53.81 Hypertension I10 Hypertension type: essential hypertension
[2020-05-11] MEDS: hydroCHLOROthiazide 25 mg Tablet 12.5 MG PO (14:31)
[2020-05-11] MEDS: acetaminophen 325 mg Tablet 650 MG PO (15:59)
[2020-05-11] MEDS: fluoxetine 20 mg Capsule PO (20:42)
[2020-05-12 04:00] VITALS: BP 161/82; PULSE 84; RESP 18; TEMP 36.7; O2SAT 95
[2020-05-12] MEDS: enoxaparin 30 mg/0.3 mL Syringe SUBCUT (05:26)
[2020-05-12 08:00] VITALS: BP 150/76; PULSE 94; RESP 18; TEMP 36.4; O2SAT 97
[2020-05-12] MEDS: levothyroxine 125 mcg Tablet PO (09:49)
[2020-05-12] MEDS: hydroCHLOROthiazide 25 mg Tablet 12.5 MG PO (09:49)
[2020-05-12] MEDS: memantine 5 mg tablet 10 MG PO ×2 (09:50→20:52)
[2020-05-12] MEDS: famotidine 20 mg Tablet PO ×2 (09:50→17:23)
[2020-05-12] MEDS: BuSPIRONE 5 mg Tablet PO ×2 (09:50→20:52)
[2020-05-12] MEDS: clopidogrel 75 mg Tablet PO (09:50)
[2020-05-12] MEDS: amlodipine 10 mg Tablet PO (09:51)
--- NOTE | 2020-05-12 11:01 | P.PN_ITS ---
Subjective Subjective: Interval history: No new clinical events overnight. Discovered today that bisoprolol hydrochlorothiazide from her home medication list has not been given as a product is not on formulary. Hydrochlorothiazide 12.5 mg added separately Medications: Reviewed: Yes Vitals/I&O/Wt Last Vital Signs Temp 97.5 F L 05/12/20 08:00 Pulse 94 05/12/20 08:00 Resp 18 05/12/20 08:00 BP 150/76 05/12/20 08:00 Pulse Ox 97 05/12/20 08:00 05/11/20 05/12/20 05/12/20 22:59 06:59 14:59 Intake Total 100 / 680 0 / 0 Balance 100 / 680 0 / 0 Physical Exam Narrative: EXAM NARRATIVE: Awake, do not communicate, comfortably laying in bed Resp: COMMON NORMALS: clear to auscultation bilaterally EFFORT & INSPECTION: Yes symmetric chest movement AUSCULTATION: clear to auscultation bilaterally Cardio: COMMON NORMALS: regular rate, regular rhythm, S1 normal heart sound present, S2 normal heart sound present, No gallops present (Cardio), No murmurs present (Cardio), No rub (Cardio) and Peripheral pulses 2+ throughout RATE: regular rate RHYTHM: regular rhythm HEART SOUNDS: S1 normal heart sound present and S2 normal heart sound present PERIPHERAL PULSES: Peripheral pulses 2+ throughout GI: COMMON NORMALS: Normal to inspection, nondistended, normoactive bowel sounds present, Soft to palpation, non-tender, No hepatosplenomegaly present and no masses AUSCULTATION: Yes normoactive bowel sounds PALPATION: Yes Soft to palpation and Yes No hepatosplenomegaly present RECTAL EXAM: deferred Extremity: COMMON NORMALS: no clubbing, cyanosis or edema and no pedal edema Data : 05/07/20 10:45 05/07/20 10:45 A&P Assessment and plan (1) Alzheimer's dementia: Progressive Alzheimer's dementia at least since August 2019 since when fracisco horowitz has been living with her family. She has in-home services and a home health aide that stays with her for most part of the day. At baseline patient requires frequent reorientation, though is able to correctly state her name, recognize relatives, self feed, ambulate with walker with assistance and indicate when she needs to have a bowel movement. Over the past week family has noted that patient has deteriorated more significantly, currently sentences do not make sense, refusing to eat, refusing to ambulate. No focal neuro deficits at this time to suggest CVA. CT head is negative for any acute events. Patient had T-max of 99.9 after 2nd COVID vaccination and was complaining of myalgias. Possible that low-grade fever and generalized feeling of unwell may have precipitated this current cognitive decline, however given that this has not significantly improved even after resolution of fever and adequate hydration, believe that this is more likely related to a gradual decline rather than an acute encephalopathy. Patient was mildly dehydrated upon admission, had supplemental IV fluids, however this did not make any significant difference in her mentation. No current focal signs or symptoms of infection. He UA is clear, chest x-ray is without any infiltrates, abdominal exam is benign, no current abdominal complaints. She remains afberile and hemodynamically stable. Could not participate with PT effectively as she did not follow most commands.. Family is requesting transition to a [facility] facility as they will be unable to take care of patient in her current state. Code status changed to DNR/DNI after discussion with family Status: Acute Qualifiers: Alzheimer's disease onset: unspecified onset Dementia behavioral disturbance: with behavioral disturbance Qualified Code(s): G30.9 - Alzheimer's disease, unspecified; F02.81 - Dementia in other diseases classified elsewhere with behavioral disturbance (2) Generalized weakness: Status: Acute (3) Declining functional status: Status: Acute (4) Hypertension: Systolic blood pressure continuing to be 180, added HCTZ 12.5mg po daily. HR currently controlled, off bisoprolol since admission Status: Acute Qualifiers: Hypertension type: essential hypertension Qualified Code(s): I10 - Essential (primary) hypertension Additional A&P Information Dispo discharge to SNF as family unable to care for patient at home in current state DVT prophylaxis : Lovenox Attestations Medical Necessity Statement*: Patient is awaiting placement to SNF as family unable to care for patient. Coding Level of Care Code Acute Veterinary Pathologist for [facility] Fwd Exam Expanded Problem Focused Diagnoses Alzheimer's dementia G30.9; F02.81 Alzheimer's disease onset: unspecified onset Dementia behavioral disturbance: with behavioral disturbance Generalized weakness R53.1 Declining functional status R53.81 Hypertension I10 Hypertension type: essential hypertension
[2020-05-12 11:26] VITALS: BP 146/79; PULSE 83; RESP 18; TEMP 37.1; O2SAT 93
[2020-05-12 15:32] VITALS: BP 154/74; PULSE 86; RESP 18; TEMP 36.7; O2SAT 95
[2020-05-12 19:40] VITALS: BP 128/78; PULSE 94; RESP 18; TEMP 37; O2SAT 94
[2020-05-12] MEDS: fluoxetine 20 mg Capsule PO (20:52)
[2020-05-13 00:17] VITALS: BP 153/81; PULSE 90; RESP 17; TEMP 36.5; O2SAT 96
[2020-05-13 04:29] VITALS: BP 139/69; PULSE 77; RESP 18; TEMP 36.6; O2SAT 95
[2020-05-13] MEDS: enoxaparin 40 mg/0.4 mL Syringe SUBCUT (06:20)
[2020-05-13 07:12] VITALS: BP 109/73; PULSE 81; RESP 16; TEMP 36.6; O2SAT 96
[2020-05-13] MEDS: hydroCHLOROthiazide 25 mg Tablet 12.5 MG PO (09:20)
[2020-05-13] MEDS: memantine 5 mg tablet 10 MG PO (09:21)
[2020-05-13] MEDS: levothyroxine 125 mcg Tablet PO (09:22)
[2020-05-13] MEDS: famotidine 20 mg Tablet PO (09:22)
[2020-05-13] MEDS: BuSPIRONE 5 mg Tablet PO (09:22)
[2020-05-13] MEDS: clopidogrel 75 mg Tablet PO (09:22)
[2020-05-13] MEDS: amlodipine 10 mg Tablet PO (09:22)
--- NOTE | 2020-05-13 09:24 | PM.DCS ---
Discharge Providers Date of Admission: 05/07/20 15:07 Date of Discharge: May 13, 2020 Attending Provider at Admission: Bonnie Comer MD Attending Provider at Discharge: Fredi Leigh MD Diagnoses at Discharge Discharge Diagnosis (1) Alzheimer's dementia: Status: Chronic Qualifiers: Alzheimer's disease onset: unspecified onset Dementia behavioral disturbance: with behavioral disturbance Qualified Code(s): G30.9 - Alzheimer's disease, unspecified; F02.81 - Dementia in other diseases classified elsewhere with behavioral disturbance (2) Generalized weakness: Status: Acute (3) Declining functional status: Status: Acute (4) Hypertension: Status: Acute Qualifiers: Hypertension type: essential hypertension Qualified Code(s): I10 - Essential (primary) hypertension Reason for Visit Reason for Visit: GENERAL WEAKNESS Hospital Course Hospital Course Neelam Walker is a 80 year old female with past medical history of Alzheimer dementia with progressive cognitive decline since August 2019 she was brought in by the family for worsening mental status and baseline over the last 2 days. Per patient's son who was at bedside,on the day of admission he stated that patient received her second dose of COVID-19 vaccination 2 days ago, few hours afterwards she went to sleep and then was difficult to be awakened on Tuesday morning. She had a T-max of 99.9 Fahrenheit over the past 2 days. She did complain of soreness in her arm and some myalgias. However their main concern was that their mother appears to be more lethargic than usual. At baseline she is able to correctly state her name, age, independently is able to self feed and ambulates with a walker with cueing. She can also have short conversations with appropriate context. Over the last 2 days, she has been sleeping more hours than usual, difficult to awaken in the mornings, is refusing to currently eat or drink, does not self feed and is not ambulating. She has not indicated that she has any urinary discomfort. She is incontinent and wears pull-ups. No diarrhea noted by family. No cough. Diagnostics in the ER showed relatively normal labs including CBC LFT and renal function. Lactate is not elevated. Troponin baseline at 15. No EKG changes. CT head negative for CVA. Moderate small vessel changes and moderate parenchymal volume loss progress since 2016. Otherwise no acute findings. TSH is within range. She was admitted for the management of Progressive Alzheimer's dementia at least since August 2019 since when patient has been living with her family. She had in-home services and a home health aide that stays with her for most part of the day. At baseline patient requires frequent reorientation, though is able to correctly state her name, recognize relatives, self feed, ambulate with walker with assistance and indicate when she needs to have a bowel movement. Over the past 2 days family has noted that patient has deteriorated more significantly, currently sentences do not make sense, refusing to eat, refusing to ambulate. No focal neuro deficits at this time to suggest CVA. CT head is negative for any acute events. Patient had T-max of 99.9 after vaccination and was complaining of myalgias. Possible that low-grade fever and generalized feeling of unwell may have precipitated this current cognitive decline, however do expect it to improve over the next 24 to 48 hours. Patient appeared mildly dehydrated, on admission likely as a result of poor p.o. intake over the past 2 days, she was started on i.v Fluids.She was kept on Mechanical soft diet with supplementation Ensure added. No current focal signs or symptoms of infection. He UA is clear, chest x-ray is without any infiltrates, abdominal exam is benign, no current abdominal complaints.During the hospital she remained hemodynamically stable. But she could not participate with PT effectively as she did not follow most commands.. Family requested transition to a halfway facility as they will be unable to take care of patient in her current state. Skilled care was denied though she was accepted as assisted. She was transferred to [facility]. Physical Exam Narrative: EXAM NARRATIVE: Awake, more communicative today Resp: COMMON NORMALS: clear to auscultation bilaterally EFFORT & INSPECTION: Yes symmetric chest movement AUSCULTATION: clear to auscultation bilaterally Cardio: COMMON NORMALS: regular rate, regular rhythm, S1 normal heart sound present, S2 normal heart sound present, No gallops present (Cardio), No murmurs present (Cardio), No rub (Cardio) and Peripheral pulses 2+ throughout RATE: regular rate RHYTHM: regular rhythm HEART SOUNDS: S1 normal heart sound present and S2 normal heart sound present PERIPHERAL PULSES: Peripheral pulses 2+ throughout GI: COMMON NORMALS: Normal to inspection, nondistended, normoactive bowel sounds present, Soft to palpation, non-tender, No hepatosplenomegaly present and no masses AUSCULTATION: Yes normoactive bowel sounds PALPATION: Yes Soft to palpation and Yes No hepatosplenomegaly present RECTAL EXAM: deferred Extremity: COMMON NORMALS: no clubbing, cyanosis or edema and no pedal edema Discharge Data Data Completed and Pending: Completed Studies During Hospitalization Category Date Time Status CT head wo con* 7 0450 Urgent Cat Scan 05/07/20 10:09 Completed XR chest 1V cristina ble [id number] Urgent Exams 05/07/20 10:09 Completed Vitals: Last Vital Signs Temp 97.8 F 05/13/20 07:12 Pulse 81 05/13/20 07:12 Resp 16 05/13/20 07:12 BP 109/73 05/13/20 07:12 Pulse Ox 96 05/13/20 07:12 Discharge Plan Discharge Patient Disposition: Home Condition: Stable Prescriptions: Continued multivitamin Tablet 1 tab PO DAILY@08 RF: 0 calcium 600 mg Capsule 600 mg PO BID@08,20 RF: 0 buspirone 5 mg tablet 5 mg PO BID@08,20 RF: 0 bisoprolol-hydrochlorothiazide 10-6.25 mg tablet 1 tab PO DAILY@08 RF: 0 clopidogrel 75 mg tablet 75 mg PO DAILY@08 RF: 0 tramadol 50 mg tablet 50 - 100 mg PO TID PRN (Reason: Pain) RF: 0 acetaminophen 500 mg Tablet 1,000 mg PO TID PRN (Reason: Pain) RF: 0 Synthroid 125 mcg tablet 125 mcg PO DAILY@08 RF: 0 fluoxetine 20 mg capsule 20 mg PO DAILY@20 RF: 0 memantine 10 mg tablet 10 mg PO BID@08,20 RF: 0 galantamine 24 mg capsule,ext rel. pellets 24 hr 24 mg PO DAILY@20 RF: 0 Discharge Orders: Discharge Order (Routine); Ordered 05/13/20 Ordered By: Fredi Leigh Referrals: [facility] [Outside] Discharge Diet: Soft Mechanical Patient Instructions: Hypertension, Dementia (GEN) Discharge Attestations Time Spent in Discharge Care*: less than 30 min Specific Discharge Activities: educating and/or supporting family/caregiver, discussing with vocational case manager/social workers/dc planners and evaluating patient/reviewing data Status at Discharge: Cognitive status at discharge: mildly impaired cognition, Behavioral status at discharge: cooperative, Overall status at discharge: patient is back to baseline Quality Metrics Clinical Quality Measures During this hospital stay, did patient experience: None Coding Level of Care Code Acute g [facility] note Diagnoses Alzheimer's dementia G30.9; F02.81 Alzheimer's disease onset: unspecified onset Dementia behavioral disturbance: with behavioral disturbance Generalized weakness R53.1 Declining functional status R53.81 Hypertension I10 Hypertension type: essential hypertension
[2020-05-13 11:11] VITALS: BP 129/75; PULSE 72; RESP 18; TEMP 36.8; O2SAT 94
[2020-05-13 13:37] VITALS: BP 129/75; PULSE 72; RESP 18; TEMP 36.8; O2SAT 94
== END 2020-05-13 13:38 | disposition home or self-care (01) ==
LOC: ER 15:11 → MEDSURG 15:30
PROVIDERS: Family Medicine; Admitting Provider Student in an Organized Health Care Education/Training Program; Emergency Provider Physician Assistant; Visit Provider Internal Medicine
DX: G30.9 Alzheimer's disease, unspecified (principal); F02.81 Dementia in other diseases classified elsewhere, unspecified severity, with behavioral disturbance; R53.1 Weakness; R53.81 Other malaise; I10 Essential (primary) hypertension; E03.9 Hypothyroidism, unspecified; Z86.73 Personal history of transient ischemic attack (TIA), and cerebral infarction without residual deficits
CPT/HCPCS: 70450; 71045; 80053; 80306; 81003; 82550; 83605; 83735; 84443; 84484; 85025; 93005; 96361; 96372; 96374; 97161; 97530; 99285; G0378; J1650; J1885; J7040

== ENCOUNTER → 2020-07-21 11:05 | Outpatient (BNVA) | payer MEDICARE, SELFPAY | PROVIDERS: Referring Provider Nurse Practitioner Family; Visit Provider Specialist | DX: M17.12 Unilateral primary osteoarthritis, left knee (principal); M25.562 Pain in left knee; M25.462 Effusion, left knee | CPT/HCPCS: 73560; 73565 ==

== ENCOUNTER → 2021-06-11 09:44 | Outpatient (BNVA) | payer MEDICARE, SELFPAY | PROVIDERS: Visit Provider Specialist | DX: M17.0 Bilateral primary osteoarthritis of knee (principal) | CPT/HCPCS: 20610; 99213 ==